=== PATIENT | male | born 1985 | race Caucasian/White ===

== ENCOUNTER 2019-01-18 18:29 | Emergency (ER) | payer OTHER ==
[2019-01-18 18:52] VITALS: TEMP 98; BMI 25.8
[2019-01-18] MEDS ORDERED: KETOROLAC TROMETHAMINE 30 MG/1 ML VIAL IM ONE (19:24)
[2019-01-18] MEDS ORDERED: KETOROLAC TROMETHAMINE 30 MG/1 ML VIAL ONE (19:28)
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
[2019-01-18] MEDS ORDERED: HYDROmorphone HCL CARPU-JECT 2 MG/1 ML DISP.SYRIN IVPB ONE (20:54)
[2019-01-18] MEDS ORDERED: morphine CARPU-JECT 2 MG/1 ML DISP.SYRIN IVPUSH ONE (21:11)
[2019-01-18] MEDS ORDERED: HYDROmorphone HCl 2 MG/ML VIAL ONE (21:38)
[2019-01-18 21:41] LABS: BASO % 0.9 % (0-2.0); EOS % 1.2 % (0-4.5); HEMATOCRIT 45.3 % (35.4-49); HEMOGLOBIN 15.5 GM/dL (11.7-16.9); LYMPH % 35.6 % (8-40); MCH 32.8 pg (25.7-33.7); MCHC 34.3 g/dl (32.0-35.9); MEAN CELL VOLUME 95.7 fl (80-96); MEAN PLT VOLUME 7.8 fl (7.5-11.1); MONO % 4.6 % (3.8-10.2); NEUT % 57.7 % (42.8-82.8); PLATELET COUNT 343 K/MM3 (134-434); RBC 4.74 M/mm3 (4.00-5.60); RDW 13.6 % (11.9-15.9); WHITE BLOOD COUNT 9.5 K/mm3 (4.0-10.0)
[2019-01-18 21:54] LABS: INR 0.99 (0.83-1.09); PROTHROMBIN TIME (PATIENT) 11.7 SEC (9.7-13.0)
[2019-01-18 22:21] LABS: ALBUMIN 4.1 g/dl (3.4-5.0); BILIRUBIN,TOTAL 0.3 mg/dL (0.2-1); BLOOD UREA NITROGEN 6.3 mg/dL (7-18); CALCIUM 8.3 mg/dL (8.5-10.1); CREATININE 0.8 mg/dL (0.55-1.3); TOT PROT 7.9 g/dl (6.4-8.2)
[2019-01-18 22:57] VITALS: BP 138/82; PULSE 98
[2019-01-18] MEDS ORDERED: POTASSIUM CHLORIDE TABS 20 MEQ TABLET.ER (FP) PO ONE (23:43)
--- NOTE | 2019-01-19 14:14 | EKG ---
Test Reason : Blood Pressure : / mmHG Vent. Rate : 121 BPM Atrial Rate : 121 BPM P-R Int : 130 ms QRS Dur : 078 ms QT Int : 326 ms P-R-T Axes : 051 049 034 degrees QTc Int : 462 ms SINUS TACHYCARDIA OTHERWISE NORMAL ECG NO PREVIOUS ECGS AVAILABLE Confirmed by BEATRIZ PARRA MD ([id number]) on 01/19/2019 2:13:56 PM Referred By: Confirmed By:BEATRIZ PARRA MD
== END 2019-01-18 23:03 | disposition short-term general hospital (02) ==
LOC: JER 18:29
PROC: 3E033NZ Introduction of Analgesics, Hypnotics, Sedatives into Peripheral Vein, Percutaneous Approach (ICD-10-PCS; principal; 2019-01-18)
PROC: 3E0233Z Introduction of Anti-inflammatory into Muscle, Percutaneous Approach (ICD-10-PCS; 2019-01-18)
DX: S82.142A Displaced bicondylar fracture of left tibia, initial encounter for closed fracture (principal); V03.00XA Pedestrian on foot injured in collision with car, pick-up truck or van in nontraffic accident, initial encounter; Y93.89 Activity, other specified; Y92.410 Unspecified street and highway as the place of occurrence of the external cause
CPT/HCPCS: 36415; 73562-TC-LT-FY; 73590-TC-RT-FY; 80053; 85025; 85610; 86850; 86900; 86901; 93005; 93010; 99284-25

== ENCOUNTER 2019-09-23 11:18 | Inpatient (IN) | payer OTHER ==
[2019-09-23] MEDS ORDERED: SODIUM CHLORIDE 0.9% 500 ML INFUS.BAG IV ONE ×2 (12:24→13:52)
--- NOTE | 2019-09-23 12:27 | PDOC ---
History of Present Illness - General Chief Complaint: Chest Pain Stated Complaint: LF SIDED CHEST PAIN Time Seen by Provider: 09/23/19 11:51 - History of Present Illness Initial Comments: Giuseppe Heredia is a 34 y/o male with PMH significant for anxiety and depression (on lexapro), presenting today with left parasternal chest pain, palpitations, vomiting x7 NBNB, tingling in the fingers which he attributes to panic attacks, which started at 4am this morning. Reports that he has a hx of anxiety but has not had this type of chest pain/palpitations before. Pain is pressure like over the left mid parasternal area. Non pleuritic, non exertional, non reproducible. He has had panic attacks before several years ago. Was prescribed xanax but did not get it refilled. No fever/chills. No headache. Reports feeling mildly lightheaded. Decreased PO intake this morning but at baseline yesterday evening. No diarrhea/dysuria/con stipation. No leg swelling/abdominal pain. No back pain. FamHx: HTN SocHx: reports increased ETOH consumption over the past month due to stress (usually drinks a couple glasses of whiskey a week, increased to one to two glasses per day. Last drink Tuesday night. Past History - Medical History Allergies/Adverse Reactions: Allergies Allergy/AdvReac Type Severity Reaction Status Date / Time Penicillins Allergy Verified 09/23/19 11:21 Home Medications: Ambulatory Orders Escitalopram Oxalate [Lexapro -] 10 mg PO DAILY 01/18/19 COPD: No Psychiatric Problems: Yes (Anxiety) - Immunization History Immunization Up to Date: Yes - Psycho-Social/Smoking History Smoking History: Never smoked Have you smoked in the past 12 months: No - Substance Abuse Hx (Audit-C & DAST Scrn) How often the patient has a drink containing alcohol: 2-4 times / month Score: In Men: 4 or > Positive; In Women: 3 or > Positive: 2 Screen Result (Pos requires Nsg. Audit-10AR): Negative Review of Systems - Review of Systems Comments:: GENERAL/CONSTITUTIONAL: No fever or chills. No weakness._ HEAD, EYES, EARS, NOSE AND THROAT: No change in vision. No change in hearing. No sore throat._ CARDIOVASCULAR: Reports chest pain and heart palpitations. No shortness of breath_ RESPIRATORY: Denies cough, hemoptysis_ GASTROINTESTINAL: Reports nausea and vomiting. No diarrhea or constipation._ GENITOURINARY: No dysuria, frequency, or change in urination._ MUSCULOSKELETAL: No joint or muscle swelling or pain. No neck or back pain._ SKIN: No rash_ NEUROLOGIC: Reports lightheadedness. No headache, vertigo, loss of consciousness, or change in strength/sensation._ ENDOCRINE: No increased thirst. No abnormal weight change_ HEMATOLOGIC/LYMPHATIC: No anemia, easy bleeding, or history of blood clots._ ALLERGIC/IMMUNOLOGIC: No hives or skin allergy._ *Physical Exam - Vital Signs Last Vital Signs Temp Pulse Resp BP Pulse Ox 98 F 119 H 18 170/109 H 99 09/23/19 11:19 09/23/19 11:19 09/23/19 11:19 09/23/19 11:19 09/23/19 11:19 - Physical Exam GENERAL: Awake, alert, and oriented to person/place/time, in no acute distress_ HEAD: No signs of trauma, normocephalic, atraumatic _ EYES: PERRLA, EOMI, sclera anicteric, conjunctiva clear_ ENT: Hearing grossly normal, nares patent, oropharynx clear without exudates. No uvular deviation. Moist mucosa. No tongue fasciculations. NECK: Normal ROM, supple, no lymphadenopathy, JVD, or masses_ LUNGS: No distress, speaks in full sentences, clear to auscultation bilaterally _ HEART: Regular rate and rhythm, normal S1 and S2, no murmurs appreciated, peripheral pulses normal and equal bilaterally._ ABDOMEN: Soft, nontender, normoactive bowel sounds. No guarding, no rebound. No masses_ EXTREMITIES: Normal inspection, Normal range of motion, no edema. No clubbing or cyanosis_ NEUROLOGICAL: Cranial nerves II through XII grossly intact. Normal speech, normal gait, no focal sensorimotor deficits. No tremors on outstretched hands bilaterally,. SKIN: Warm, Dry, normal turgor, no rashes or lesions noted_ ED Treatment Course - LABORATORY CBC & Chemistry Diagram: 09/23/19 12:10 09/23/19 12:10 Medical Decision Making - Medical Decision Making 34M hx of anxiety/depression presenting today with left sided chest pain, heart palpitations, and nausea/vomiting x7 that started at 4am this morning. HEART score 0. DDx includes r/o ACS vs MSK chest pain vs costochondritis vs panic attack vs ETOH withdrawal. -cbc, cmp -ekg, trop, cxr -mg/phos -tsh -fluids -ativan 09/23/19 12:20 EKG shows 111 bpm, sinus tachycardia, no axis deviation, [place] 132, QTc 503, no ST elevation/depression. 09/23/19 13:14 CXR reviewed. No signs of acute intrathoracic pathology. 09/23/19 13:53 Labs reviewed. Will supplement with magnesium 400mg. Laboratory Last Values WBC 12.3 K/mm3 (4.0-10.0) H 09/23/19 12:10 RBC 4.82 M/mm3 (4.00-5.60) 09/23/19 12:10 Hgb 15.5 GM/dL (11.7-16.9) 09/23/19 12:10 Hct 46.2 % (35.4-49) 09/23/19 12:10 MCV 95.8 fl (80-96) 09/23/19 12:10 MCH 32.2 pg (25.7-33.7) 09/23/19 12:10 MCHC 33.6 g/dl (32.0-35.9) 09/23/19 12:10 RDW 13.1 % (11.9-15.9) 09/23/19 12:10 Plt Count 298 K/MM3 (134-434) 09/23/19 12:10 MPV 8.6 fl (7.5-11.1) D 09/23/19 12:10 Absolute Neuts (auto) 10.6 K/mm3 (1.5-8.0) H 09/23/19 12:10 Neutrophils % 86.1 % (42.8-82.8) H D 09/23/19 12:10 Lymphocytes % 7.0 % (8-40) L D 09/23/19 12:10 Monocytes % 6.3 % (3.8-10.2) 09/23/19 12:10 Eosinophils % 0.1 % (0-4.5) D 09/23/19 12:10 Basophils % 0.5 % (0-2.0) 09/23/19 12:10 Nucleated RBC % 0 % (0-0) 09/23/19 12:10 Sodium 137 mmol/L (136-145) 09/23/19 12:10 Potassium 3.8 mmol/L (3.5-5.1) 09/23/19 12:10 Chloride 100 mmol/L (98-107) 09/23/19 12:10 Carbon Dioxide 27 mmol/L (21-32) 09/23/19 12:10 Anion Gap 10 MMOL/L (8-16) 09/23/19 12:10 BUN 10.5 mg/dL (7-18) 09/23/19 12:10 Creatinine 1.0 mg/dL (0.55-1.3) 09/23/19 12:10 Est GFR (CKD-EPI)AfAm 111.73 09/23/19 12:10 Est GFR (CKD-EPI)NonAf 96.40 09/23/19 12:10 Random Glucose 130 mg/dL (74-106) H 09/23/19 12:10 Calcium 9.9 mg/dL (8.5-10.1) 09/23/19 12:10 Phosphorus 2.7 mg/dL (2.5-4.9) 09/23/19 12:10 Magnesium 1.6 mg/dL (1.8-2.4) L 09/23/19 12:10 Total Bilirubin 0.9 mg/dL (0.2-1) 09/23/19 12:10 AST 106 U/L (15-37) H 09/23/19 12:10 ALT 164 U/L (13-61) H 09/23/19 12:10 Alkaline Phosphatase 147 U/L (45-117) H 09/23/19 12:10 Creatine Kinase 107 U/L (26-308) 09/23/19 12:10 Troponin I < 0.02 ng/ml (0.00-0.05) 09/23/19 12:10 Total Protein 8.2 g/dl (6.4-8.2) 09/23/19 12:10 Albumin 4.4 g/dl (3.4-5.0) 09/23/19 12:10 Lipase 77 U/L (73-393) 09/23/19 12:10 TSH 1.08 uIU/ml (0.358-3.74) 09/23/19 12:10 09/23/19 14:05 Pt reassessed. Reports feeling less anxious at this time after ativan. Will give 2nd liter of NS and librium. 09/23/19 16:14 Pt reassessed. Amenable to staying in the hospital for ETOH withdrawal. CIWA 15 points Nausea/vomiting > 5 = (More severe symptoms) Tremor > 4 = Moderate, with patient's arms extended Paroxysmal sweats > 1 = Barely perceptible sweating, palms moist Anxiety > 4 = Moderately anxious, or guarded, so anxiety is inferred Agitation > 0 = Normal activity Tactile disturbances > 0 = None Auditory disturbances > 0 = Not present Visual disturbances > 0 = Not present Headache/fullness in head > 1 = Very mild Orientation/clouding of sensorium > 0 = Oriented, can do serial additions 09/23/19 16:16 D/w Dr. Lim who accepts the patient for admission. Discharge - Discharge Information Problems reviewed: Yes Clinical Impression/Diagnosis: Tachycardia, Palpitations Alcohol withdrawal Qualifiers: Complication of substance-induced condition: uncomplicated Qualified Code(s): F10.230 - Alcohol dependence with withdrawal, uncomplicated Condition: Stable - Admission Yes - Follow up/Referral - Patient Discharge Instructions - Post Discharge Activity
[2019-09-23] MEDS ORDERED: LORazepam 2 MG/ML SDV VIAL ONE (12:40)
--- NOTE | 2019-09-23 12:48 | PDOC ---
Documentation entered by Reagan Camara SCRIBE, acting as scribe for Messi Sánchez MD. Messi Sánchez MD: This documentation has been prepared by the Jax johnson Xhesika, SCRIBE, under my direction and personally reviewed by me in its entirety. I confirm that the documentation accurately reflects all work, treatment, procedures, and medical decision making performed by me. Attending Attestation - Resident Resident Name: Samson Quiroz - ED Attending Attestation I have performed the following: I have examined & evaluated the patient, The case was reviewed & discussed with the resident, I agree w/resident's findings & plan, Exceptions are as noted - HPI HPI: 09/23/19 12:18 The patient is a 34 year old male with a PMH of anxiety and depression who presents to the ED for L sided chest pain since 4am. Pt describes pain as a dull pressure, non-radiating, associated with intermittent heart palpitations. Pt also reports 6/7 episodes of NBNB emesis. Pt states his symptoms feel similar to his previous panic attacks. Pt notes that he has had increased stress at work recently. As a result, he has been drinking more heavily. Reports drinking whiskey daily over the past month. Last drink was about 2 days ago. No h/o withdrawal. Pt denies any shortness of breath, fever, chills, cough, diarrhea and constipation. Denies dysuria, frequency, urgency and hematuria. Allergy: Penicillins - Physicial Exam PE: 09/23/19 12:49 See resident exam - Medical Decision Making 09/23/19 12:49 34 M with chest pain, palpitations, N+V. Panic attack vs ETOH withdrawal. - Labs - Ativan IV - Reassess 09/23/19 14:20 Labs notable for mild transaminitis, likely 2/2 ETOH abuse. Pt reassessed - states he feels much better HR improved from 130 to 100s. Will continue IV hydration. Discharge - Discharge Information Problems reviewed: Yes Clinical Impression/Diagnosis: Tachycardia, Palpitations Alcohol withdrawal Qualifiers: Complication of substance-induced condition: uncomplicated Qualified Code(s): F10.230 - Alcohol dependence with withdrawal, uncomplicated Condition: Improved Disposition: HOME - Follow up/Referral - Patient Discharge Instructions - Post Discharge Activity
[2019-09-23 13:04] LABS: BASO % 0.5 % (0-2.0); EOS % 0.1 % (0-4.5); HEMATOCRIT 46.2 % (35.4-49); HEMOGLOBIN 15.5 GM/dL (11.7-16.9); MCH 32.2 pg (25.7-33.7); MCHC 33.6 g/dl (32.0-35.9); MEAN CELL VOLUME 95.8 fl (80-96); MEAN PLT VOLUME 8.6 fl (7.5-11.1); MONO % 6.3 % (3.8-10.2); NEUT % 86.1 % (42.8-82.8); PLATELET COUNT 298 K/MM3 (134-434); RBC 4.82 M/mm3 (4.00-5.60); RDW 13.1 % (11.9-15.9); WHITE BLOOD COUNT 12.3 K/mm3 (4.0-10.0)
[2019-09-23 13:37] LABS: ALBUMIN 4.4 g/dl (3.4-5.0); ALK PHOS 147 U/L (45-117); ANION GAP 10 MMOL/L (8-16); BILIRUBIN,TOTAL 0.9 mg/dL (0.2-1); BLOOD UREA NITROGEN 10.5 mg/dL (7-18); CALCIUM 9.9 mg/dL (8.5-10.1); CHLORIDE 100 mmol/L (98-107); CO2 27 mmol/L (21-32); GLUCOSE,RANDOM 130 mg/dL (74-106); LIPASE 77 U/L (73-393); PHOSPHOROUS 2.7 mg/dL (2.5-4.9); POTASSIUM 3.8 mmol/L (3.5-5.1); SGOT/AST 106 U/L (15-37); SGPT/ALT 164 U/L (13-61); SODIUM 137 mmol/L (136-145); TOT PROT 8.2 g/dl (6.4-8.2)
[2019-09-23] MEDS ORDERED: MAGNESIUM OXIDE 400 MG TABLET (FP) PO ONE (13:48)
[2019-09-23] MEDS ORDERED: MAGNESIUM OXIDE 400 MG TABLET (FP) ONE (13:57)
[2019-09-23] MEDS ORDERED: chlordiazePOXIDE HCL 25 MG CAPSULE PO ONE (14:20)
[2019-09-23] MEDS ORDERED: chlordiazePOXIDE HCL 25 MG CAPSULE ONE ×3 (14:38→23:08)
--- NOTE | 2019-09-23 17:40 | HP ---
CHIEF COMPLAINT: Chest pain/palpitations PCP: Dr. Chau HISTORY OF PRESENT ILLNESS: 34yo M with h/o of anxiety with panic attacks who presents today with atypical chest pain, palpitations. Patient reports increased drinking throughout this past month consistently drinking a significant amount of whiskey per night. Patient reports his last drink was Tuesday. Patient started developing his symptoms this morning where he experienced L sided 7/10 sharp chest pain without radiation. During this time he had diaphoresis and slight numbness of his upper extremities. Patient experienced palpitations at this time which had remained continuously through time of my exam. Patient reports he never had anything like this before. Pt states he previously has taken Xanax for panic attacks, however this was not like his usual panic attacks. Denies any thyroid disease. Denies any fever/chills, sick contacts, current SOB, current CP, abdominal pain, diarrhea/constipation, dysuria, polyuria. Recent Travel: Denies PAST MEDICAL HISTORY: As above PAST SURGICAL HISTORY: L knee surgery, R wrist fixation Social History: Smoking: Denies Alcohol: Everyday multiple cups of whiskey for the past month Drugs: Denies Family Hx: Father - HTN; alive Mother - HTN; alive No thyroid disease presents in any family Allergies Penicillins Allergy (Verified 09/23/19 11:21) (reaction during childhood; unknown reaction) HOME MEDICATIONS: Home Medications Medication Instructions Recorded Escitalopram Oxalate [Lexapro -] 10 mg PO DAILY 01/18/19 REVIEW OF SYSTEMS As above PHYSICAL EXAMINATION Vital Signs - 24 hr 09/23/19 09/23/19 09/23/19 11:19 13:24 15:09 Temperature 98 F Pulse Rate 119 H Pulse Rate [ 108 H 118 H Apical] Respiratory 18 18 18 Rate Blood Pressure 170/109 H Blood Pressure 148/92 138/98 [Left Arm] O2 Sat by Pulse 99 98 97 Oximetry (%) 09/23/19 09/23/19 15:58 16:38 Temperature 98.2 F Pulse Rate Pulse Rate [ 117 H 114 H Apical] Respiratory 18 18 Rate Blood Pressure Blood Pressure 146/105 H 146/96 [Left Arm] O2 Sat by Pulse 98 98 Oximetry (%) GENERAL: Awake, alert, and fully oriented, in no acute distress. HEENT: NC/AT, JODIE, EOMI without nystagmus, no sclera icterus, MMM NECK: No masses, no thyromegaly, no carotid bruits. LUNGS: CTA bilaterally. No wheezes, and no crackles. No accessory muscle use. HEART: Tachycardic with regular rate, normal S1 and S2 without murmur appreciated ABDOMEN: Soft, NT/ND, normoactive bowel sounds, no guarding, no rebound EXTREMITIES: 2+ pulses, warm, well-perfused. No calf tenderness. No peripheral edema. NEUROLOGICAL: Cranial nerves II-XII intact. Normal speech. Normal gait. PSYCHIATRIC: Cooperative. Good eye contact. Anxiouswil SKIN: Warm, dry, surgical scar R wrist healed, surgical scar medial , normal capillary refill. Laboratory Results - last 24 hr 09/23/19 09/23/19 09/23/19 12:10 12:10 12:10 WBC 12.3 H RBC 4.82 Hgb 15.5 Hct 46.2 MCV 95.8 MCH 32.2 MCHC 33.6 RDW 13.1 Plt Count 298 MPV 8.6 D Absolute Neuts (auto) 10.6 H Neutrophils % 86.1 H D Lymphocytes % 7.0 L D Monocytes % 6.3 Eosinophils % 0.1 D Basophils % 0.5 Nucleated RBC % 0 Sodium 137 Potassium 3.8 Chloride 100 Carbon Dioxide 27 Anion Gap 10 BUN 10.5 Creatinine 1.0 Est GFR (CKD-EPI)AfAm 111.73 Est GFR (CKD-EPI)NonAf 96.40 Random Glucose 130 H Calcium 9.9 Phosphorus 2.7 Magnesium 1.6 L Total Bilirubin 0.9 AST 106 H ALT 164 H Alkaline Phosphatase 147 H Creatine Kinase 107 Troponin I < 0.02 Total Protein 8.2 Albumin 4.4 Lipase 77 TSH 1.08 ASSESSMENT/PLAN: Alcohol Withdrawal Sinus Tachycardia Panic Attack --Patient likely has combined panic attack and alcohol withdrawal considering his recent elevated alcohol use --Telemetry to monitor for any Atrial fibrillation episodes --TSH ordered; r/o thyroid disorder --Librium taper ordered --Will need psych/psychotherapy follow-up on outpatient basis Bjorn Lim DO - IM Visit type - Emergency Visit Emergency Visit: Yes ED Registration Date: 09/23/19 Care time: The patient presented to the Emergency Department on the above date and was hospitalized for further evaluation of their emergent condition. - New Patient This patient is new to me today: Yes Date on this admission: 09/23/19 - Critical Care Critical Care patient: No
[2019-09-23] MEDS: chlordiazePOXIDE HCL 25 MG CAPSULE PO SCH ×2 (18:14→23:16)
[2019-09-24 01:11] VITALS: BMI 26.9
[2019-09-24] MEDS: chlordiazePOXIDE HCL 25 MG CAPSULE PO SCH ×4 (05:57→23:38)
[2019-09-24 07:05] LABS: CREATININE 0.8 mg/dL (0.55-1.3); PHOSPHOROUS 3.1 mg/dL (2.5-4.9); POTASSIUM 3.7 mmol/L (3.5-5.1)
--- NOTE | 2019-09-24 09:04 | PN ---
Progress Note, Physician Chief Complaint: No new complaint looks anxious History of Present Illness: 34 years old man history of anxiety panic disorder, EtOH abuse yesterday admitted with complaint of feeling anxious, palpitation want to stop drinking for past 2 days, patient was in alcohol withdrawal admitted to telemetry for further management continue Librium protocol protocol denies any suicidal or homicidal ideation denies any delusional hallucinations. - Current Medication List Current Medications: Active Medications Chlordiazepoxide HCl (Librium -) 50 mg PO [id number] MAKI Stop: 09/24/19 23:01 Last Admin: 09/24/19 05:57 Dose: 50 mg Documented by: Chlordiazepoxide HCl (Librium -) 25 mg PO [id number] MAKI Stop: 09/25/19 23:01 Chlordiazepoxide HCl (Librium -) 25 mg PO Q4H PRN PRN Reason: WITHDRAWAL(CONT SUBST) Stop: 09/25/19 23:59 Chlordiazepoxide HCl (Librium -) 10 mg PO [id number] MAKI Stop: 09/26/19 23:01 Chlordiazepoxide HCl (Librium -) 10 mg PO Q12H MAKI Stop: 09/27/19 17:01 Chlordiazepoxide HCl (Librium -) 10 mg PO Q4H PRN PRN Reason: WITHDRAWAL(CONT SUBST) Stop: 09/27/19 00:00 Chlordiazepoxide HCl (Librium -) 10 mg PO ONCE@0500 ONE Stop: 09/28/19 05:01 Escitalopram Oxalate (Lexapro -) 10 mg PO DAILY [facility] - Objective Vital Signs: Vital Signs Temperature 98.4 F 09/24/19 08:46 Pulse Rate 103 H 09/24/19 08:46 Respiratory Rate 17 09/24/19 08:46 Blood Pressure 118/75 09/24/19 08:46 O2 Sat by Pulse Oximetry (%) 100 09/24/19 08:46 General: Young man looks anxious , comfortable, not in distress HEENT mucous membranes moist, no anemia, no jaundice, PERRLA, no nystagmus Neck: No JVD, supple, no bruit, thyroid palpably normal, normal carotid pulsations. Chest: Nontender, clear to auscultation bilaterally CVS: S1-S2 regular no murmur/gallop/rub Abdomen: Nondistended, soft, bowel sounds present. Extremities: No edema., No Calf tenderness, pulses present [employer]: Fine tremors AO X3 , no gross motor sensory deficit Labs: CBC, BMP 09/23/19 12:10 09/24/19 05:35 - ....Imaging EKG: Report Reviewed (Sinus tachycardia) Problem List - Problems (1) Alcohol withdrawal Assessment/Plan: Continue alcohol withdrawal protocol follow-up electrolytes, CIWA IV, Librium protocol Problems reviewed: Yes Code(s): F10.239 - ALCOHOL DEPENDENCE WITH WITHDRAWAL, UNSPECIFIED Qualifiers: Complication of substance-induced condition: uncomplicated Qualified Code(s): F10.230 - Alcohol dependence with withdrawal, uncomplicated (2) Hypomagnesemia Assessment/Plan: Repeated replete magnesium was normal Problems reviewed: Yes Code(s): E83.42 - HYPOMAGNESEMIA (3) Palpitations Assessment/Plan: Complaint of palpitation, most likely due to alcohol withdrawal and anxiety continue citalopram. Problems reviewed: Yes Code(s): R00.2 - PALPITATIONS
--- NOTE | 2019-09-24 09:59 | EKG ---
Test Reason : Blood Pressure : / mmHG Vent. Rate : 111 BPM Atrial Rate : 111 BPM P-R Int : 132 ms QRS Dur : 088 ms QT Int : 370 ms P-R-T Axes : 067 063 032 degrees QTc Int : 503 ms SINUS TACHYCARDIA OTHERWISE NORMAL ECG WHEN COMPARED WITH ECG OF 18-JAN-2019 22:33, NO SIGNIFICANT CHANGE WAS FOUND Confirmed by Sandhya Helm ([id number]) on 09/24/2019 9:58:44 AM Referred By: Confirmed By:Sandhya Helm
[2019-09-24] MEDS: ESCITALOPRAM OXALATE 10 MG TABLET PO SCH (11:00)
[2019-09-24] MEDS: chlordiazePOXIDE HCL 25 MG CAPSULE PO PRN (21:34)
[2019-09-25] MEDS: chlordiazePOXIDE HCL 25 MG CAPSULE PO PRN (03:19)
[2019-09-25] MEDS ORDERED: chlordiazePOXIDE HCL 25 MG CAPSULE PO SCH (05:00)
[2019-09-25 07:40] LABS: BASO % 0.3 % (0-2.0); HEMATOCRIT 41.6 % (35.4-49); HEMOGLOBIN 14.2 GM/dL (11.7-16.9); LYMPH % 39.1 % (8-40); MCH 32.9 pg (25.7-33.7); MCHC 34.1 g/dl (32.0-35.9); MEAN CELL VOLUME 96.6 fl (80-96); MEAN PLT VOLUME 8.8 fl (7.5-11.1); MONO % 9.6 % (3.8-10.2); PLATELET COUNT 223 K/MM3 (134-434); RBC 4.31 M/mm3 (4.00-5.60); RDW 13.5 % (11.9-15.9); WHITE BLOOD COUNT 5.4 K/mm3 (4.0-10.0)
[2019-09-25 08:06] LABS: ALBUMIN 3.4 g/dl (3.4-5.0); ANION GAP 9 MMOL/L (8-16); BILIRUBIN,TOTAL 0.7 mg/dL (0.2-1); BLOOD UREA NITROGEN 7.8 mg/dL (7-18); CHLORIDE 106 mmol/L (98-107); CO2 26 mmol/L (21-32); CREATININE 0.8 mg/dL (0.55-1.3); GLUCOSE,RANDOM 93 mg/dL (74-106); MAGNESIUM 2.3 mg/dL (1.8-2.4); POTASSIUM 3.8 mmol/L (3.5-5.1); SGOT/AST 58 U/L (15-37); SGPT/ALT 98 U/L (13-61); SODIUM 140 mmol/L (136-145); TOT PROT 6.7 g/dl (6.4-8.2)
[2019-09-25 08:21] LABS: ALK PHOS 108 U/L (45-117)
[2019-09-25] MEDS: ESCITALOPRAM OXALATE 10 MG TABLET PO SCH (09:14)
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
[2019-09-25] MEDS ORDERED: LORazepam 1 MG TABLET PO PRN (10:31)
[2019-09-25] MEDS: LORazepam 1 MG TABLET PO SCH ×3 (10:51→22:06)
--- NOTE | 2019-09-25 11:31 | CONSULT ---
Consult Detox [facility] Reason for Current Admission/Consult: Alcohol use disorder Referred by:: KYLE Connolly - History History of Present Illness: Mr. Heredia is a 34 year old man. His history is obtained from the chart: PMH of anxiety and depression who presents to the ED for L sided chest pain since 4am. Pt describes pain as a dull pressure, non-radiating, associated with intermittent heart palpitations. Pt also reports 6/7 episodes of NBNB emesis. Pt states his symptoms feel similar to his previous panic attacks. Pt notes that he has had increased stress at work recently. As a result, he has been drinking more heavily. Reports drinking whiskey daily over the past month. Last drink was about 2 days ago. No h/o withdrawal. Pt denies any shortness of breath, fever, chills, cough, diarrhea and constipation. Denies dysuria, frequency, urgency and hematuria. SocHx: reports increased ETOH consumption over the past month due to stress (usually drinks a couple glasses of whiskey a week, increased to one to two glasses per day. Last drink Tuesday night. CIWA 5 Pt wants to leave due to work obligations Impression 1. Alcohol use disorder Plan 1. ATivan detox 2. Notes suggest pt wants to leave hospital today - History Source History Provided By: Medical Record - Alcohol/Substance Use Hx Alcohol Use: No CIWA Score - CIWA Score Nausea/Vomitin-No Nausea/No Vomiting Muscle Tremors: None Anxiety: 4-Mod. Anxious/Guarded Agitation: 0-Normal Activity Paroxysmal Sweats: 1-Minimal Palms Moist Orientation: 0-Oriented Tacttile Disturbances: 0-None Auditory Disturbances: 0-None Visual Disturbances: 0-None Headache: 0-None Present CIWA-Ar Total Score: 5 Assessment Plan - Diagnosis (1) Alcohol withdrawal Status: Acute Qualifiers: Complication of substance-induced condition: uncomplicated Qualified Code(s): F10.230 - Alcohol dependence with withdrawal, uncomplicated - Medication Detox Regimen/Protocol: Ativan
--- NOTE | 2019-09-25 11:45 | ECHO ---
Version: 1 Name: RAJESH MURRELL Exam: Adult Echocardiogram Study Date: 09/25/2019, 11:03 AM Age: 34 Years MMode/2D Measurements & Calculations IVSd: 0.96 cm LVIDs: 2.5 cm LVIDd: 4.0 cm LVPWd: 1.18 cm LAV (MOD-bp): 31.2 ml LVOT diam: 1.94 cm Ao root diam: 2.6 cm LA dimension: 3.2 cm Doppler Measurements & Calculations MV E max pepe: 61.6 cm/sec Med E/e': 7.1 MV A max pepe: 48.5 cm/sec Med Peak E' Pepe: 8.7 cm/sec MV E/A: 1.27 Lat E/e': 5.4 Lat Peak E' Pepe: 11.4 cm/sec Ao max P.8 mmHg Ao V2 max: 130.1 cm/sec Left Ventricle The left ventricular size, thickness and function are normal. Ejection Fraction = 65%. The transmitr al spectral Doppler flow pattern is normal for age. Right Ventricle The right ventricle is normal in size and function. Atria Normal left and right atrial size and function. Mitral Valve The mitral valve is normal. There is no mitral regurgitation noted. Tricuspid Valve The tricuspid valve is normal. There is mild tricuspid regurgitation. Aortic Valve The aortic valve is normal in structure and function. No aortic regurgitation is present. Pulmonic Valve The pulmonic valve is not well seen, but is grossly normal. Great Vessels The aortic root is normal size. Normal aortic arch, descending and ascending aorta. Pericardium/Pleura There is no pericardial effusion. Summary Statements The left ventricular size, thickness and function are normal Ejection Fraction = 65%. The transmitral spectral Doppler flow pattern is normal for age. The right ventricle is normal in size and function. Normal left and right atrial size and function. The mitral valve is normal. There is no mitral regurgitation noted. The tricuspid valve is normal. There is mild tricuspid regurgitation. The aortic valve is normal in structure and function. No aortic regurgitation is present. The pulmonic valve is not well seen, but is grossly normal. The aortic root is normal size. Normal aortic arch, descending and ascending aorta There is no pericardial effusion. Rito Aceves 09/25/2019, 11:45 AM Ordering Physician: Fiona Linares Referring Physician: ERROL Performed By: Jennifer Ruiz
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
[2019-09-25 19:18] LABS: CHOLESTEROL 157 mg/dL (50-200); HDL CHOLESTEROL 66 mg/dL (40-60); LDL CHOLESTEROL (ONLY SJRH) 68 mg/dL (5-100); TRIGLYCERIDES 144 mg/dL (0-150)
[2019-09-25] MEDS: HEPARIN NA (PORCINE) 5,000 UNITS/ML 1ML VIAL SQ SCH (21:28)
[2019-09-26] MEDS ORDERED: chlordiazePOXIDE HCL 10 MG CAPSULE PO PRN
[2019-09-26] MEDS ORDERED: chlordiazePOXIDE HCL 10 MG CAPSULE PO SCH (05:00)
[2019-09-26] MEDS: LORazepam 0.5 MG TABLET PO SCH ×4 (05:43→23:09)
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
[2019-09-26 09:46] LABS: BASO % 0.4 % (0-2.0); EOS % 2.6 % (0-4.5); HEMATOCRIT 44.4 % (35.4-49); HEMOGLOBIN 14.9 GM/dL (11.7-16.9); LYMPH % 29.8 % (8-40); MCH 32.3 pg (25.7-33.7); MCHC 33.5 g/dl (32.0-35.9); MEAN CELL VOLUME 96.5 fl (80-96); MEAN PLT VOLUME 8.5 fl (7.5-11.1); MONO % 4.4 % (3.8-10.2); NEUT % 62.8 % (42.8-82.8); PLATELET COUNT 267 K/MM3 (134-434); RBC 4.61 M/mm3 (4.00-5.60); RDW 13.3 % (11.9-15.9); WHITE BLOOD COUNT 5.5 K/mm3 (4.0-10.0)
[2019-09-26] MEDS: HEPARIN NA (PORCINE) 5,000 UNITS/ML 1ML VIAL SQ SCH ×2 (10:01→22:45)
[2019-09-26] MEDS: ESCITALOPRAM OXALATE 10 MG TABLET PO SCH (10:01)
[2019-09-26 10:32] LABS: ALBUMIN 3.6 g/dl (3.4-5.0); BILIRUBIN,TOTAL 0.7 mg/dL (0.2-1); BLOOD UREA NITROGEN 8.3 mg/dL (7-18); CALCIUM 9.3 mg/dL (8.5-10.1); CREATININE 0.9 mg/dL (0.55-1.3); POTASSIUM 3.4 mmol/L (3.5-5.1); TOT PROT 7.3 g/dl (6.4-8.2)
[2019-09-26] MEDS ORDERED: POTASSIUM CHLORIDE TABS 20 MEQ TABLET.ER (FP) PO ONE (11:00)
--- NOTE | 2019-09-26 13:00 | EKG ---
Test Reason : Blood Pressure : / mmHG Vent. Rate : 086 BPM Atrial Rate : 086 BPM P-R Int : 134 ms QRS Dur : 084 ms QT Int : 364 ms P-R-T Axes : 060 055 042 degrees QTc Int : 435 ms NORMAL SINUS RHYTHM NORMAL ECG WHEN COMPARED WITH ECG OF 23-SEP-2019 11:29, NO SIGNIFICANT CHANGE WAS FOUND Confirmed by MD GODWIN, KYLAH ([id number]) on 09/26/2019 12:59:55 PM Referred By: Joaquim WONG Confirmed By:KYLAH CONNELLY MD
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
--- NOTE | 2019-09-26 15:55 | TRE ---
Protocol Name : JERI Max Work Load (METS*10) : 104 Time In Exercise Phase : 00:09:00 Max. Systolic BP : 188 mmHg Max Diastolic BP : 90 mmHg Max Heart Rate : 171 BPM Max Predicted Heart Rate : 184 BPM Attending Physician : DR SMITH Reason For Termination : Target Heart Rate Achieved Reason for Test : CHEST PAIN Stress Protocol : JERI Rest HR : 129 BPM PeakEx METs : 10.4 METS Recovery ECG Response (OLD) : Diagnosis : Indication: Chest pain The patient exercised on the treadmill for 9Min of the Jeri protocol. Baseline HR 103bpm, achieved maximum HR 171bpm (92%MPHR). Baseline BP 125/95mmHg, Maximum BP 166/90mmHg. Stopped due to fatigue. Resting ECG NSR with normal axis and intervals. Stress ECmm ST segment depression in lead II, III, aVF. Normal HR and BP response. No arrhythmias. ECG changes resolved with recovery. Impression: Abnormal stress ECG. Positive for ischemic ECG changes with exercise. Normal chronotropic response. Confirmed by Minh Smith ([id number]) on 09/26/2019 3:55:32 PM
--- NOTE | 2019-09-26 16:05 | PN ---
Progress Note (short form) - Note Progress Note: GI CONSULT DICTATED
--- NOTE | 2019-09-26 17:02 | CONS ---
DATE OF CONSULTATION: DATE OF DICTATION: 09/26/2019 GASTROENTEROLOGY CONSULTATION HISTORY OF PRESENT ILLNESS: The patient is a 34-year-old male with a past medical history significant for anxiety and panic attacks who is admitted to the telemetry unit with complaints of atypical chest pain and palpitations. This consultation is for abnormal liver test. This patient does admit to drinking quite a bit of cocktails and alcohol over the past couple of months, significant amount of whiskey secondary to stress at work. He states prior to coming into the hospital he had an episode of the diaphoresis and left-sided chest pain with significant nausea and vomiting at the time. At this time he denies any abdominal pain, nausea, vomiting, hematemesis, melena, hematochezia, diarrhea, constipation, history of jaundice. He does take vitamins and supplement from [place] that his grandfather brings in. There is no family history of liver disease. He has never had an endoscopic evaluation and has never had an abnormal liver test in the past. PAST MEDICAL AND SURGICAL HISTORY: As listed in the HPI with the addition of a left knee surgery and right wrist fixation. SOCIAL HISTORY: Does not smoke. Drinks alcohol every day, multiple cups of whiskey for the past month or two. Denies any additional drug abuse. FAMILY HISTORY: Again, family history is negative for GI, gynecological malignancy or liver disease. ALLERGIES: PENICILLIN. HOME MEDICATIONS: Lexapro. REVIEW OF SYSTEMS: As per the HPI. PHYSICAL EXAMINATION: Vital Signs: Temperature 97, pulse 76, blood pressure 139/95, respiratory rate 18, oxygen saturation 99% on room air. General: In no acute distress. HEENT: Anicteric sclerae. Cardiovascular: S1, S2, regular rate and rhythm. Lungs: Bilaterally clear to auscultation. Abdomen: Soft, nontender. Extremities: Without edema. LABORATORY: White blood cell count 5.5, hemoglobin and hematocrit 14/44, MCV 96, platelet count 267. Sodium 140, potassium 3.4, BUN/creatinine 8.3/0.9, glucose 195. Liver tests on admission revealed an AST of 106, ALT of 164, alkaline phosphatase of 147. These numbers are coming down and presently are at 97, 136, and 114, AST, ALT, and alkaline phosphatase respectively. Total bilirubin 0.7. Lipase within normal. Serologies for chronic liver disease are pending at this time. COVID-19 is negative. He has had an abdominal ultrasound which revealed hepatomegaly and diffuse fatty infiltration of the liver. IMPRESSION: Transaminitis, hepatocellular pattern, predominantly ALT with a mild elevation in the AST. These findings do not appear to be entirely secondary to his alcohol abuse considering the ALT is greater than the AST. It may be more significant of a chronic liver disease as well as medication-induced, perhaps some of the supplements he was taking at home. Ultrasound was performed, and there is no evidence of any obstruction. RECOMMENDATION: Trend liver test daily while hospitalized. Follow up serologies for chronic and inherited liver disease. Will add on AMY smooth muscle antibody , IgA, IgG, acetaminophen level. Alcohol abstinence. If liver tests worsen, would recommend additional imaging with an MRCP. For now, his liver tests should just be monitored. Further recommendation pending serology results. DO CARMENZA DRISCOLL/[id number]
[2019-09-26 17:32] LABS: INR 0.85 (0.83-1.09)
[2019-09-27] MEDS ORDERED: chlordiazePOXIDE HCL 10 MG CAPSULE PO SCH (05:00)
[2019-09-27] MEDS ORDERED: LORazepam 1 MG TABLET PO SCH (05:00)
[2019-09-27] MEDS ORDERED: LORazepam 0.5 MG TABLET PO ONE (05:00)
[2019-09-27] MEDS: HEPARIN NA (PORCINE) 5,000 UNITS/ML 1ML VIAL SQ SCH (09:04)
[2019-09-27] MEDS: ESCITALOPRAM OXALATE 10 MG TABLET PO SCH (09:05)
[2019-09-27 10:00] LABS: BASO % 0.6 % (0-2.0); EOS % 3.3 % (0-4.5); HEMATOCRIT 42.8 % (35.4-49); HEMOGLOBIN 14.3 GM/dL (11.7-16.9); LYMPH % 35.5 % (8-40); MCH 32.6 pg (25.7-33.7); MCHC 33.5 g/dl (32.0-35.9); MEAN CELL VOLUME 97.3 fl (80-96); MONO % 6.9 % (3.8-10.2); NEUT % 53.7 % (42.8-82.8); PLATELET COUNT 261 K/MM3 (134-434); RDW 13.4 % (11.9-15.9); WHITE BLOOD COUNT 6.2 K/mm3 (4.0-10.0)
[2019-09-27 10:12] LABS: ALBUMIN 3.4 g/dl (3.4-5.0); BILIRUBIN,TOTAL 0.4 mg/dL (0.2-1); BLOOD UREA NITROGEN 9.7 mg/dL (7-18); CALCIUM 9.1 mg/dL (8.5-10.1); CREATININE 0.8 mg/dL (0.55-1.3); TOT PROT 6.7 g/dl (6.4-8.2)
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
--- NOTE | 2019-09-27 11:49 | PN.GI ---
GI Progress Note Subjective: No acute events Sitting up and on his phone and using laptop Awaiting repeat stress test - Objective Vital Signs: Vital Signs Temperature 98.2 F 09/27/19 09:05 Pulse Rate 83 09/27/19 09:05 Respiratory Rate 22 H 09/27/19 09:05 Blood Pressure 135/97 09/27/19 09:05 O2 Sat by Pulse Oximetry (%) 100 09/27/19 09:05 Constitutional: Calm Eyes: No: Sclera Icterus Cardiovascular: Yes: Regular Rate and Rhythm Respiratory: Yes: CTA Bilaterally Gastrointestinal Inspection: No: Distention ...Auscultate: Yes: Normoactive Bowel Sounds ...Palpate: Yes: Soft. No: Hepatomegaly, Splenomegaly, Tenderness Edema: No (No LE edema) Neurological: Yes: Alert Labs: CBC, BMP 09/27/19 05:37 09/27/19 05:37 INR, PTT INR 0.85 (0.83-1.09) 09/26/19 17:00 Hepatic Panel Total Bilirubin 0.4 mg/dL (0.2-1) 09/27/19 05:37 AST 96 U/L (15-37) H 09/27/19 05:37 ALT 153 U/L (13-61) H 09/27/19 05:37 Alkaline Phosphatase 103 U/L (45-117) 09/27/19 05:37 Albumin 3.4 g/dl (3.4-5.0) 09/27/19 05:37 Problem List - Problems (1) Elevated liver enzymes Assessment/Plan: Suspect secondary to active alcohol use and likely SNEED Awaiting hepatitis serologies Monitor LFTS Check HCV antibody (HCV, Diagnostic) Avoid hepatotoxic agents Advised need for strict alcohol cessation Code(s): R74.8 - ABNORMAL LEVELS OF OTHER SERUM ENZYMES
[2019-09-27 13:11] VITALS: BP 140/107; PULSE 84
[2019-09-27 14:59] VITALS: TEMP 98
--- NOTE | 2019-09-27 15:06 | ECHO ---
Name: RAJESH MURRELL Exam:Exerise Stress Echocardiogram Study Date: 09/27/2019 01:42 PM Age: 34 yrs Reason For Study: Rule Out Ischemia Height: 67 in Weight: 172 lb BSA: 1.9 m2 Procedure Details: Exercise Stress Echocardiogram with 2D imaging. Stress Comments A treadmill exercise test according to Cam protocol was performed. Patient exercised 9:44 minutes, 97% mphr, 11.2 mets. Normal hr and bp response to exercise. No anginal symptoms. No ischemic ecg changes or arrhythmias with exercise. Normal exercise stress ecg. Exercise Echocardiogram Negative exercise stress echocardiogram, adequate by heart rate criteria, without symptoms, diagnosti c EKG changes or echocardiographic evidence of ischemia. Interpretation Summary Negative exercise stress echocardiogram, adequate by heart rate criteria, without symptoms, diagnosti c EKG changes or echocardiographic evidence of ischemia Reading Physician: MD Shubham Espinosa 09/27/2019 03:06 PM
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
[2019-09-27 22:06] LABS: HEP B CORE AB, TOT Negative (Negative)
[2019-09-28] MEDS ORDERED: LORazepam 0.5 MG TABLET PO PRN
[2019-09-28] MEDS ORDERED: chlordiazePOXIDE HCL 10 MG CAPSULE PO ONE (05:00)
[2019-09-28 11:08] LABS: TRANSGLUTAMINASE IGA < 2 U/mL (0-3); TRANSGLUTAMINASE IGG < 2 U/mL (0-5)
== END 2019-09-27 17:18 | disposition home or self-care (01) | DRG 775 ==
LOC: JERFT 11:18 → JER 11:18 → JERBED 16:17 → JICU 23:28
PROVIDERS: ADMIT Internal Medicine; ATTEND Nurse Practitioner Family
PROC: HZ2ZZZZ Detoxification Services for Substance Abuse Treatment (ICD-10-PCS; principal; 2019-09-23)
DX: F10.230 Alcohol dependence with withdrawal, uncomplicated (principal); F41.0 Panic disorder [episodic paroxysmal anxiety]; F32.9 Major depressive disorder, single episode, unspecified; F41.9 Anxiety disorder, unspecified; R00.0 Tachycardia, unspecified; R11.2 Nausea with vomiting, unspecified; R74.0 Nonspecific elevation of levels of transaminase and lactic acid dehydrogenase [LDH]; R07.89 Other chest pain; E83.42 Hypomagnesemia; R00.2 Palpitations; R16.0 Hepatomegaly, not elsewhere classified; S82.142D Displaced bicondylar fracture of left tibia, subsequent encounter for closed fracture with routine healing; K76.0 Fatty (change of) liver, not elsewhere classified
CPT/HCPCS: 36415; 71045-TC-FY; 76705-TC; 80048; 80053; 80061; 80307; 82550; 83516; 83690; 83721; 83735; 84100; 84443; 84484; 85025; 85610; 85730; 86038; 86704; 86706; 86707; 86708; 86709; 87340; 93005; 93010; 93017; 93018; 93306-TC; 93351; 97116-GP; 97161-GP; 99285-25; J1644; U0003

== ENCOUNTER 2020-04-07 11:25 | Inpatient (IN) | payer OTHER ==
[2020-04-07 11:48] VITALS: BMI 25.0
[2020-04-07] MEDS ORDERED: ACETAMINOPHEN 1000 MG/100 ML VIAL (NON FORMULARY) IVPB ONE (12:24)
[2020-04-07] MEDS ORDERED: ALBUTEROL SO4 HFA INHALER IH PRN (12:28)
[2020-04-07] MEDS ORDERED: ALBUTEROL SO4 2.5/IPRATROPIUM 0.5 INH SOL 3 ML VIAL.NEB. NEB SCH (12:30)
[2020-04-07] MEDS ORDERED: LORazepam 2 MG/ML SDV VIAL IVPUSH ONE (12:30)
[2020-04-07] MEDS ORDERED: ACETAMINOPHEN INJECTION 100 ML IVPB ONE (12:39)
[2020-04-07] MEDS ORDERED: LORazepam 2 MG/ML SDV VIAL ONE (12:39)
[2020-04-07] MEDS ORDERED: RAPID SEQUENCE INTUBATION KIT NR ONE (12:44)
[2020-04-07] MEDS ORDERED: ROCURONIUM BROMIDE 50 MG/5 ML VIAL IVPUSH ONE (13:01)
[2020-04-07] MEDS ORDERED: ETOMIDATE 40 MG/20 ML VIAL IVPUSH ONE (13:02)
[2020-04-07] MEDS ORDERED: PROPOFOL 200 MG/20 ML VIAL IVPUSH ONE (13:02)
[2020-04-07 13:08] LABS: INR 0.95 (0.83-1.09); PROTHROMBIN TIME (PATIENT) 11.5 SEC (9.7-13.0)
[2020-04-07 13:10] LABS: ACTIVATED PTT 38.4 SECONDS (25.2-36.5)
[2020-04-07] MEDS ORDERED: PROPOFOL 1,000,000 MCG/100 ML VIAL ONE (13:11)
[2020-04-07 13:15] LABS: BASO % 0.2 % (0-2.0); EOS % 1.4 % (0-4.5); HEMATOCRIT 55.2 % (35.4-49); HEMOGLOBIN 17.7 GM/dL (11.7-16.9); LYMPH % 35.5 % (8-40); MCH 33.6 pg (25.7-33.7); MEAN CELL VOLUME 105.1 fl (80-96); MEAN PLT VOLUME 9.2 fl (7.5-11.1); MONO % 3.9 % (3.8-10.2); PLATELET COUNT 403 K/MM3 (134-434); RBC 5.25 M/mm3 (4.00-5.60); RDW 13.9 % (11.9-15.9); WHITE BLOOD COUNT 29.5 K/mm3 (4.0-10.0)
[2020-04-07] MEDS ORDERED: PROPOFOL 1,000,000 MCG/100 ML VIAL IVPB SCH (13:15)
[2020-04-07 13:18] LABS: CHLORIDE 98 mmol/L (98-107); POTASSIUM 4.9 mmol/L (3.5-5.1); SODIUM 131 mmol/L (136-145)
[2020-04-07 13:20] LABS: CALCIUM 9.1 mg/dL (8.5-10.1); GLUCOSE,RANDOM 196 mg/dL (74-106)
[2020-04-07 13:21] LABS: ALBUMIN 5.1 g/dl (3.4-5.0); ANION GAP 27 MMOL/L (8-16); BLOOD UREA NITROGEN 9.3 mg/dL (7-18); CO2 5 mmol/L (21-32)
[2020-04-07 13:23] LABS: BILIRUBIN,DIRECT 0.2 mg/dL (0.0-0.2); SGPT/ALT 169 U/L (13-61)
[2020-04-07 13:24] LABS: CREATININE 1.7 mg/dL (0.55-1.3); SGOT/AST 114 U/L (15-37)
[2020-04-07 13:25] LABS: BILIRUBIN,TOTAL 0.5 mg/dL (0.2-1); TOT PROT 10.4 g/dl (6.4-8.2)
[2020-04-07 13:26] LABS: ALK PHOS 207 U/L (45-117)
[2020-04-07 13:29] LABS: N-TERMINAL BNP 27.7 pg/ml (5-125)
[2020-04-07] MEDS ORDERED: LACTATED RINGERS SOLUTION 1000 ML INFUS.BAG IV ONE (13:41)
[2020-04-07 13:52] LABS: LDH 364 U/L (87-246)
[2020-04-07] MEDS ORDERED: FOLIC ACID 5 MG/1 ML SQ ONE (13:58)
[2020-04-07] MEDS ORDERED: THIAMINE HCL 200 MG/2 ML VIAL IVPB ONE (13:58)
[2020-04-07] MEDS ORDERED: NOREPINEPHRINE BITARTRATE 4 MG/4 ML ML IV ONE ×2 (14:10→14:19)
[2020-04-07] MEDS ORDERED: MIDAZOLAM 100 MG/100 ML MG IVPB ONE ×2 (14:11→23:36)
[2020-04-07] MEDS ORDERED: NOREPINEPHRINE BITARTRATE 8,000 MCG/500 ML BAG IVPB SCH (14:30)
[2020-04-07 14:39] LABS: MACROCYTOSIS 1+; PLATELET ESTIMATE NORMAL
[2020-04-07] MEDS ORDERED: NALOXONE HCL 0.4 MG/ML VIAL ONE (15:03)
[2020-04-07] MEDS ORDERED: ATROPINE SULFATE 1 MG/10 ML DISP.SYRIN ONE (15:10)
[2020-04-07] MEDS ORDERED: INSULIN SLIDING SCALE (NOVOLOG) 1 VIAL SQ ONE (15:15)
[2020-04-07] MEDS ORDERED: EPINEPHrine/PF 1 MG/1 ML (1:1,000) AMPULE ONE ×2 (15:31→16:02)
[2020-04-07] MEDS ORDERED: VASOPRESSIN 20 UNITS/ML VIAL IV ONE ×3 (15:45→17:53)
[2020-04-07 15:58] LABS: VENOUS PCO2 77.9 mmHg (38-52); VENOUS PH < 6.717 (7.310-7.410)
[2020-04-07 16:35] LABS: ARTERIAL BLOOD GAS PO2 61.1 mmHg (80-100)
[2020-04-07 16:38] LABS: ALLENS TEST POSITIVE
[2020-04-07 16:39] LABS: VENT RATE 14
[2020-04-07] MEDS ORDERED: EPINEPHrine INTRACARD 1:10,000 1 MG/10 ML DISP.SYRIN ICARD ONE ×6 (16:39→16:42)
[2020-04-07] MEDS ORDERED: ATROPINE SULFATE 1 MG/10 ML DISP.SYRIN IVPUSH ONE ×3 (16:42→16:43)
[2020-04-07] MEDS ORDERED: NALOXONE HCL 0.4 MG/ML VIAL IVPUSH ONE (16:43)
[2020-04-07] MEDS ORDERED: CALCIUM GLUCONATE 10% - 1,000 MG/10 ML VIAL IVPUSH ONE (16:43)
[2020-04-07] MEDS ORDERED: AMIODARONE HCL 150 MG/3 ML VIAL IVPUSH ONE (16:44)
[2020-04-07] MEDS ORDERED: DEXTROSE 50%-WATER - 25 GM/50 ML VIAL IVPUSH ONE (16:54)
[2020-04-07] MEDS ORDERED: SODIUM BICARBONATE 8.4% 50 MEQ/50 ML DISP.SYRIN IVPUSH ONE ×9 (16:54→23:27)
[2020-04-07] MEDS ORDERED: INSULIN (NOVOLOG) ASPART 100 UNITS/ML 10ML VIAL SQ ONE (16:54)
[2020-04-07] MEDS ORDERED: SODIUM BICARBONATE 8.4% - 100 ML ONE (17:27)
[2020-04-07] MEDS ORDERED: SODIUM BICARBONATE 8.4% - 100 MEQ in DEXTROSE 5%-WATER - 1,000 ML IV SCH ×2 (17:30→23:28)
[2020-04-07 17:37] LABS: MAGNESIUM 3.1 mg/dL (1.8-2.4)
[2020-04-07 17:38] VITALS: TEMP 96.8
[2020-04-07] MEDS ORDERED: VANCOMYCIN 1 GM in D5W (PRE-DOCKED) 1,000 MG/250 ML IVPB ONE (17:54)
[2020-04-07] MEDS ORDERED: AZTREONAM 1 GM VIAL (RESTRICTED TO ID) IVPB ONE (17:56)
[2020-04-07] MEDS ORDERED: SODIUM CHLORIDE 1,000 ML IV SCH (18:00)
[2020-04-07] MEDS ORDERED: SODIUM BICARBONATE 8.4% 50 MEQ/50 ML VIAL ONE ×3 (18:01→21:21)
[2020-04-07] MEDS ORDERED: PANTOPRAZOLE SODIUM 80 MG in SODIUM CHLORIDE 100 ML IVPB SCH (18:15)
[2020-04-07] MEDS ORDERED: AZTREONAM 1 GM in DEXTROSE 5%-WATER - 50 ML IVPB ONE (18:15)
[2020-04-07] MEDS ORDERED: HYDROCORTISONE SOD SUCCINATE 100 MG/2 ML VIAL IVPB SCH (18:16)
[2020-04-07] MEDS ORDERED: PNEUMOC 13-VAL CONJ-DIP CRM/PF 0.5 ML DISP.SYRIN IM ONE (18:46)
[2020-04-07 19:02] LABS: ARTERIAL BLOOD GAS PO2 270.5 mmHg (80-100)
[2020-04-07 19:06] LABS: ALLENS TEST POSITIVE; VENT MODE A/C; VENT RATE 14
[2020-04-07 19:08] LABS: ARTERIAL BLOOD GAS pH < 6.717 (7.350-7.450)
[2020-04-07] MEDS ORDERED: DEXTROSE 5%-WATER - 50 ML IVPB ONE (20:11)
[2020-04-07] MEDS ORDERED: AZTREONAM 1 GM VIAL (RESTRICTED TO ID) ONE (20:11)
[2020-04-07] MEDS: DOPAMINE 400 MG/D5W - 400,000 MCG/250 ML INFUS.BAG IVPB SCH ×2 (20:23→23:44)
[2020-04-07] MEDS: VASOPRESSIN 40 UNITS in SODIUM CHLORIDE 98 ML IVPB SCH ×2 (20:24→23:44)
[2020-04-07 20:34] LABS: MAGNESIUM 4.3 mg/dL (1.8-2.4)
[2020-04-07 20:36] LABS: ALBUMIN 3.4 g/dl (3.4-5.0); CALCIUM 8.9 mg/dL (8.5-10.1)
[2020-04-07 20:37] LABS: BLOOD UREA NITROGEN 17.3 mg/dL (7-18)
[2020-04-07 20:39] LABS: CREATININE 2.8 mg/dL (0.55-1.3)
[2020-04-07 20:41] LABS: BILIRUBIN,TOTAL 0.7 mg/dL (0.2-1)
[2020-04-07 20:43] LABS: TOT PROT 7.1 g/dl (6.4-8.2)
[2020-04-07 20:46] LABS: POTASSIUM 7.5 mmol/L (3.5-5.1)
[2020-04-07] MEDS ORDERED: PNEUMOCOCCAL 23 VACCINE 0.5 ML VIAL IM ONE (21:00)
[2020-04-07 21:04] LABS: ARTERIAL BLD GAS O2 SATURATION 99.1 mmHg (95-98); ARTERIAL BLOOD GAS BASE EXCESS -27.4 mmol/L (-2-2); ARTERIAL BLOOD GAS PO2 293.6 mmHg (80-100)
[2020-04-07 21:09] LABS: ARTERIAL BLOOD GAS pH 6.797 (7.350-7.450)
[2020-04-07] MEDS: MIDAZOLAM 100 MG in SODIUM CHLORIDE 100 ML IVPB SCH ×2 (21:20→23:50)
[2020-04-07 21:59] LABS: ARTERIAL BLD GAS O2 SATURATION 97.9 mmHg (95-98); ARTERIAL BLOOD GAS BASE EXCESS -29.4 mmol/L (-2-2); ARTERIAL BLOOD GAS PO2 196.5 mmHg (80-100)
[2020-04-07] MEDS ORDERED: MUPIROCIN 2% TOPICAL OINTMENT FOR DECOLONIZATION NS SCH (22:00)
[2020-04-07] MEDS ORDERED: CHLORHEXIDINE GLUCONATE 4% CLEANSER FOR DECOLONIZATION TP SCH (22:00)
[2020-04-07 22:05] LABS: ALLENS TEST POSITIVE; VENT MODE A/C; VENT RATE 30
[2020-04-07 22:06] LABS: ARTERIAL BLOOD GAS pH 6.772 (7.350-7.450)
[2020-04-07 22:19] LABS: BLOOD UREA NITROGEN 18.8 mg/dL (7-18); CALCIUM 8.1 mg/dL (8.5-10.1)
[2020-04-07 22:23] LABS: CREATININE 2.5 mg/dL (0.55-1.3)
[2020-04-07 22:33] LABS: POTASSIUM 7.4 mmol/L (3.5-5.1)
[2020-04-07 22:49] LABS: ARTERIAL BLD GAS O2 SATURATION 92.8 mmHg (95-98); ARTERIAL BLOOD GAS BASE EXCESS -19.9 mmol/L (-2-2); ARTERIAL BLOOD GAS PO2 87.9 mmHg (80-100)
[2020-04-07 22:52] LABS: ALLENS TEST POSITIVE
[2020-04-07 22:53] LABS: VENT MODE A/C; VENT RATE 30
[2020-04-07 22:54] LABS: ARTERIAL BLOOD GAS pH 7.074 (7.350-7.450)
[2020-04-08] MEDS ORDERED: SODIUM BICARBONATE 8.4% - 100 MEQ in DEXTROSE 5%-WATER - 1,000 ML IV SCH (00:16)
[2020-04-08 00:22] VITALS: BP 133/91; PULSE 112
== END 2020-04-08 01:01 | disposition short-term general hospital (02) | DRG 710 ==
LOC: JER 11:25 → JERBED 16:18 → JICU 17:55
PROVIDERS: ADMIT Internal Medicine Pulmonary Disease; ATTEND Internal Medicine Pulmonary Disease
PROC: 03HY32Z Insertion of Monitoring Device into Upper Artery, Percutaneous Approach (ICD-10-PCS; principal; 2020-04-07)
PROC: 4A133B1 Monitoring of Arterial Pressure, Peripheral, Percutaneous Approach (ICD-10-PCS; 2020-04-07)
PROC: 4A133J1 Monitoring of Arterial Pulse, Peripheral, Percutaneous Approach (ICD-10-PCS; 2020-04-07)
PROC: 06HM33Z Insertion of Infusion Device into Right Femoral Vein, Percutaneous Approach (ICD-10-PCS; 2020-04-07)
PROC: B54BZZA Ultrasonography of Right Lower Extremity Veins, Guidance (ICD-10-PCS; 2020-04-07)
PROC: 5A12012 Performance of Cardiac Output, Single, Manual (ICD-10-PCS; 2020-04-07)
PROC: 5A1935Z Respiratory Ventilation, Less than 24 Consecutive Hours (ICD-10-PCS; 2020-04-07)
PROC: 0BH17EZ Insertion of Endotracheal Airway into Trachea, Via Natural or Artificial Opening (ICD-10-PCS; 2020-04-07)
PROC: 05HM33Z Insertion of Infusion Device into Right Internal Jugular Vein, Percutaneous Approach (ICD-10-PCS; 2020-04-08)
PROC: B543ZZA Ultrasonography of Right Jugular Veins, Guidance (ICD-10-PCS; 2020-04-08)
DX: A41.9 Sepsis, unspecified organism (principal); R65.21 Severe sepsis with septic shock; J96.01 Acute respiratory failure with hypoxia; I46.9 Cardiac arrest, cause unspecified; E87.4 Mixed disorder of acid-base balance; G92 Toxic encephalopathy; E87.5 Hyperkalemia; I10 Essential (primary) hypertension; N28.9 Disorder of kidney and ureter, unspecified; R74.01 Elevation of levels of liver transaminase levels; J98.11 Atelectasis; R56.9 Unspecified convulsions; G93.6 Cerebral edema; E87.2 Acidosis
CPT/HCPCS: 36415; 36600; 70450-TC; 71045-TC-FY; 71250-TC; 74176-TC; 80048; 80053; 80164; 80307; 82140; 82248; 82550; 82693; 82728; 82803; 82962; 83605; 83615; 83735; 83880; 83930; 84443; 84484; 85025; 85610; 85730; 86140; 87040; 93005; 93010; 99291; 99292; C9803; J0131; U0003